=== PATIENT | male | born 1980 | race Caucasian/White ===

== ENCOUNTER → 2017-12-23 | Outpatient (CLI) | payer BC ==
--- NOTE | 2017-12-23 13:31 | DIAGNOSTIC IMAGING REPORT ---
SCROTAL ULTRASOUND CLINICAL HISTORY: Right testicular pain. COMPARISON STUDY: None. TECHNIQUE: Grayscale and color and duplex Doppler sonography of the scrotum was performed. FINDINGS: The right testis measures 4.6 x 2.2 x 2.6 cm and the left measures 4.3 x 2.2 x 2.7 cm. There is no testicular mass. Color flow within each testis is symmetric. There is no evidence of epididymitis. There is a small left varicocele. IMPRESSION: 1. Normal sonographic appearance of the testes. 2. No evidence of epididymitis. 3. Small left varicocele. Electronically signed by: Yifan Whitlock M.D. 12/23/2017 1:30 PM Dictated Date/Time: 12/23/2017 1:28 PM
== END | disposition home or self-care (01) ==
LOC: C.ULTR 13:00
PROVIDERS: ATTEND Urology
DX: I86.1 Scrotal varices (principal); N50.811 Right testicular pain